=== PATIENT | female | born 1985 | race Caucasian/White ===

== ENCOUNTER 2017-10-11 20:11 | Inpatient (IN) | payer MEDICAID ==
[2017-10-11 22:09] LABS: ALB/GLOB RATIO 1.6 (1.0-2.1); ALBUMIN 4.4 g/dL (3.5-5.0); ALT/SGPT 25 U/L (9-52); AST/SGOT 17 U/L (14-36); BLOOD UREA NITROGEN 8 mg/dl (7-17); CALCIUM 9.2 mg/dL (8.4-10.2); GFR NON-AFRICAN AMERICAN > 60
[2017-10-11 22:13] LABS: SQUAMOUS EPITHIAL 1 /hpf (0-5); URINE BACTERIA RARE (<OCC); URINE BILIRUBIN NEGATIVE (NEGATIVE); URINE BLOOD NEGATIVE (NEGATIVE); URINE CLARITY SLIGHTY-CLOUDY (Clear); URINE COLOR YELLOW (YELLOW); URINE GLUCOSE (UA) NEG (Normal); URINE LEUKOCYTE ESTERASE SMALL Leu/uL (Negative); URINE PROTEIN NEGATIVE (NEGATIVE); URINE UROBILINOGEN 0.2-1.0 mg/dL (0.2-1.0)
[2017-10-11 22:27] LABS: BARBITURATES, UR NEGATIVE (NEGATIVE); BENZODIAZEPINES, UR NEGATIVE (NEGATIVE); OPIATES, UR NEGATIVE (NEGATIVE); PHENCYCLIDINE, UR NEGATIVE (NEGATIVE)
--- NOTE | 2017-10-11 22:46 | ED PDOC ---
HPI: Psych/Substance Abuse Time Seen by Provider: 10/11/17 21:04 Chief Complaint (Nursing): Psychiatric Evaluation Chief Complaint (Provider): Referred by psychiatrist History Per: Patient History/Exam Limitations: no limitations Additional Complaint(s): 32yo female with history of bipolar disorder, states she has been manic for the past 2 months. She has been seeing Dr. Faulkner at [place] and was evaluated today and referred to the ER for further evaluation and psych admission as patient reported increased lability of emotions, self injurious thoughts and visual hallucinations. Patient states she is currently on lithium. She states she has been admitted 1 x before due to psych reasons and that was 10 years ago. No medical complaints. Past Medical History Reviewed: Historical Data, Nursing Documentation, Vital Signs Vital Signs: Last Vital Signs Temp 98.4 F 10/11/17 20:57 Pulse 85 10/11/17 20:57 Resp 18 10/11/17 20:57 BP 149/86 10/11/17 20:57 Pulse Ox 100 10/11/17 20:57 - Medical History PMH: Bipolar Disorder - Surgical History Surgical History: No Surg Hx - Family History Family History: States: No Known Family Hx - Social History Current smoker - smoking cessation education provided: No Alcohol: None Drugs: Denies - Home Medications Home Medications: Ambulatory Orders Medication Instructions Recorded Gabapentin [Neurontin] 400 mg PO BID 10/11/17 [place] Carbonate [[place] 600 mg PO DAILY 10/11/17 Carbonate 300MG] QUEtiapine [Seroquel] 50 mg PO DAILY 10/11/17 - Allergies Allergies/Adverse Reactions: Allergies Allergy/AdvReac Type Severity Reaction Status Date / Time No Known Allergies Allergy Verified 10/11/17 20:56 Review of Systems ROS Statement: Except As Marked, All Systems Reviewed And Found Negative Constitutional: Negative for: Fever, Chills Cardiovascular: Negative for: Chest Pain Respiratory: Negative for: Shortness of Breath Gastrointestinal: Negative for: Abdominal Pain Psych: Positive for: Other (self injurious thoughts; hallucinations) Physical Exam - Reviewed Nursing Documentation Reviewed: Yes Vital Signs Reviewed: Yes - Physical Exam Appears: Positive for: Non-toxic, No Acute Distress Head Exam: Positive for: ATRAUMATIC, NORMAL INSPECTION, NORMOCEPHALIC Skin: Positive for: Normal Color, Warm, DRY Eye Exam: Positive for: EOMI, Normal appearance, PERRL ENT: Positive for: Normal ENT Inspection Neck: Positive for: Normal, Painless ROM Cardiovascular/Chest: Positive for: Regular Rate, Rhythm Respiratory: Positive for: CNT, Normal Breath Sounds Gastrointestinal/Abdominal: Positive for: Normal Exam, Soft Back: Positive for: Normal Inspection Extremity: Positive for: Normal ROM. Negative for: Pedal Edema Neurologic/Psych: Positive for: Alert, Oriented. Negative for: Motor/Sensory Deficits - Laboratory Results Result Diagrams: 10/11/17 21:53 - ECG O2 Sat by Pulse Oximetry: 100 (RA) Pulse Ox Interpretation: Normal Medical Decision Making Medical Decision Making: Impression: 32yo female with bipolar disorder Plan: -- Labs -- EKG -- Urinalysis -- Chest x-ray -- Ativan 1mg PO -- 1:1 observation Time: [address] Snider for bipolar disoder Time: 2229 Patient medically stable for psychiatric admission. Scribe Attestation: Documented by Litzy Sena, acting as a scribe for Joseph Bowman MD Provider Scribe Attestation: All medical record entries made by the Scribe were at my direction and personally dictated by me. I have reviewed the chart and agree that the record accurately reflects my personal performance of the history, physical exam, medical decision making, and the department course for this patient. I have also personally directed, reviewed, and agree with the discharge instructions and disposition. Disposition - Clinical Impression Clinical Impression: Bipolar disorder - Disposition Disposition Time: 22:00 Condition: STABLE
[2017-10-11] MEDS ORDERED: Alum-Mag Hydrox-Simethicone Susp (30 mL) PO PRN (23:48)
[2017-10-11] MEDS ORDERED: DiphenhydrAMINE 50 mg/ml Inj IM PRN (23:48)
[2017-10-11] MEDS ORDERED: Magnesium Hydroxide Susp 30 ml UD PO PRN (23:48)
[2017-10-12 00:11] VITALS: O2SAT 100
--- NOTE | 2017-10-12 01:49 | PCM.BM ---
<Bairon Mcrae P - Last Filed: 10/12/17 01:47> Treatment Plan Problems - Problems identified on initial assessmt Ineffective Impulse Control Date Initiated: 10/12/17 Time Initiated: 01:47 Assessment reference: NA Status: Active Altered Sleep Patterns Date Initiated: 10/12/17 Time Initiated: 01:48 Assessment reference: NA Status: Active Medication nonadherence Date Initiated: 10/12/17 Time Initiated: 01:48 Assessment reference: NA Status: Active Treatment assets and liabiliti Patient Assests: cooperative, ADL independent, physically healthy, negotiates basic needs, cognitively intact Patient Liabilities: financial problems, relationship conflicts, substance abuse - Milieu Protocol Maintain good personal hygiene: daily Encourage regular showers, daily Remind patient to perform daily oral care, daily Assist patient to perform ADL's Conduct patient checks and document Observation sheet: Q15 minutes Maintain personal safety: every shift Educate patient to report safety concerns to staff, every shift Monitor environment for contraband/sharps Medication safety: Monitor for expected outcome, potential side effects: every shift, Assess barriers to learning: every shift, Assess readiness for medication education: every shift <Kashmir Polanco J - Last Filed: 10/13/17 16:08> Family Contact Family involvement: Famliy/SO not involved Family contact: Patient declines to allow family contact at present Family contact name: Pt denied. - Goals for Treatment Patient goals for treatment: Pt reported she is already feeling better and did not have any goals, except to stop smoking marijuana and stay compliant with medication. Discharge/Continuing Care - Education Needs Education Needs: Patient Medication, Patient Diagnosis/Disease Process, Patient Coping Skills, Patient Placement options, Patient Community resources, Patient Aftercare Safety Plan - Discharge Discharge Criteria: Tolerates medication w/o severe side effects, Free of Suicidal thoughts, Free of agitation, Normal sleep pattern, Ability to care for self, Reduction of target symptoms Discharge to:: Home - Treatment Team Participation Patient/Family/SO Statement: 10/13/17 16:12 Pt was seen in treatment team today and reported she "feels well." Pt reported she had a "little episode" and "I was upset, I was upset." Pt reported she learned that she needs to "take it easy, and slow down." Pt listed therapy as one of her biggest needs. Dr. Castro discussed medication changes of Depakote and Minipress. Discussed with Family/SO: No Was Patient/Family/SO present at Treatment Team Meeting: Yes <Sylwia Castro - Last Filed: 10/15/17 09:31> - Diagnosis (1) Bipolar disorder Status: Acute Interventions: pharmacotherapy, psychotherapy 10/15/17 09:31
[2017-10-12 07:32] LABS: T4 6.94 ug/dl (5.5-11.0)
--- NOTE | 2017-10-12 08:45 | CARD ---
APPROVED REPORT Date of service: 10/11/2017 <Conclusion> Normal sinus rhythm Normal ECG
--- NOTE | 2017-10-12 08:51 | RAD ---
Date of service: 10/11/2017 HISTORY: admit COMPARISON: No prior. FINDINGS: LUNGS: The lungs are well inflated and clear. PLEURA: No significant pleural effusion identified, no pneumothorax apparent. CARDIOVASCULAR: Normal. OSSEOUS STRUCTURES: No significant abnormalities. VISUALIZED UPPER ABDOMEN: Normal. OTHER FINDINGS: None. IMPRESSION: No active pulmonary disease.
--- NOTE | 2017-10-12 13:14 | CP.PCM.CON ---
<HoskinsLoulou celestin - Last Filed: 10/12/17 17:30> History of Present Illness - History of Present Illness History of Present Illness: Medicine Consult Note 32 year old female with PMH of bipolar disorder presented to ED due to manic episode feeling suicidal. She denies any medical conditions. Otherwise feeling well. No headaches, dizziness, chest pain, palpitations dyspnea, abdominal pain, or constipation. No urinary symptoms. She endorses when she was taking lithium and seroquel she had vomiting and diarrhea. Those symptoms have resolved. LMP 08/30/17. reports her menses has been irregular for past few months. PMH: bipolar disorder Medications: Gabapentin, lithium, seroquel. Allergies: NKDA Social: +tobacco use, +cannabis use, no etoh Surgical hx : tubal ligation 2016 Review of Systems - Constitutional Constitutional: absent: Chills, Fever - EENT Eyes: absent: Change in Vision Nose/Mouth/Throat: absent: Nasal Congestion, Mouth Pain - Cardiovascular Cardiovascular: absent: Chest Pain, Diaphoresis, Dyspnea, Pedal Edema - Respiratory Respiratory: absent: Cough - Gastrointestinal Gastrointestinal: absent: Abdominal Pain - Neurological Neurological: absent: Dizziness, Numbness Past Patient History - Past Social History Alcohol: None Drugs: Denies - CARDIAC Hx Cardiac Disorders: No - PULMONARY Hx Respiratory Disorders: No Hx Tuberculosis: No - NEUROLOGICAL Hx Neurological Disorder: No HX Cerebrovascular Accident: No Hx Seizures: No - HEENT Hx HEENT Problems: No - RENAL Hx Chronic Kidney Disease: No - ENDOCRINE/METABOLIC Hx Endocrine Disorders: No - HEMATOLOGICAL/ONCOLOGICAL Hx Blood Disorders: No Hx Cancer: No Hx Human Immunodeficiency Virus (HIV): No - INTEGUMENTARY Hx Dermatological Problems: No - MUSCULOSKELETAL/RHEUMATOLOGICAL Hx Musculoskeletal Disorders: No - GASTROINTESTINAL Hx Gastrointestinal Disorders: No - GENITOURINARY/GYNECOLOGICAL Hx Genitourinary Disorders: No Hx Sexually Transmitted Disorders: No - PSYCHIATRIC Hx Bipolar Disorder: Yes - SURGICAL HISTORY Hx Surgeries: Yes Hx Section: Yes (x 2) - ANESTHESIA Hx Anesthesia: Yes Hx Anesthesia Reactions: No Meds Allergies/Adverse Reactions: Allergies Allergy/AdvReac Type Severity Reaction Status Date / Time No Known Allergies Allergy Verified 10/11/17 20:56 - Medications Medications: Current Medications Acetaminophen (Tylenol 325mg Tab) 650 mg PO Q4 PRN PRN Reason: pain level 4-7 Al Hydrox/Mg Hydrox/Simethicone (Maalox Plus 30 Ml) 30 ml PO Q4 PRN PRN Reason: Dyspepsia Diphenhydramine HCl (Benadryl) 50 mg IM Q6 PRN PRN Reason: Extrapyramidal S/S Unable PO Diphenhydramine HCl (Benadryl) 50 mg PO Q6 PRN PRN Reason: Extrapyramidal Symptoms Diphenhydramine HCl (Benadryl) 50 mg PO HS PRN PRN Reason: Sleep Gabapentin (Neurontin) 400 mg PO BID JUDD Last Admin: 10/12/17 10:21 Dose: 400 mg Haloperidol (Haldol) 5 mg PO Q4 PRN PRN Reason: Agitation Last Admin: 10/12/17 10:21 Dose: 5 mg Haloperidol Lactate (Haldol) 5 mg IM Q4 PRN PRN Reason: Agitation, Unable to Take PO Lorazepam (Ativan) 1 mg IM Q6 PRN PRN Reason: Anxiety/Agitation,Unable PO Lorazepam (Ativan) 1 mg PO Q6 PRN PRN Reason: Anxiety/Agitation Magnesium Hydroxide (Milk Of Magnesia) 30 ml PO HS PRN PRN Reason: Constipation Physical Exam - Constitutional Appears: No Acute Distress (cooperative) - Head Exam Head Exam: ATRAUMATIC, NORMAL INSPECTION, NORMOCEPHALIC - Eye Exam Eye Exam: Normal appearance - ENT Exam ENT Exam: Mucous Membranes Moist - Respiratory Exam Respiratory Exam: Clear to Auscultation Bilateral, NORMAL BREATHING PATTERN. absent: Decreased Breath Sounds, Respiratory Distress - Cardiovascular Exam Cardiovascular Exam: REGULAR RHYTHM, +S1, +S2 - GI/Abdominal Exam GI & Abdominal Exam: Normal Bowel Sounds, Soft. absent: Distended, Guarding, Tenderness - Extremities Exam Extremities exam: Positive for: normal inspection. Negative for: pedal edema - Skin Skin Exam: Dry, Intact, Normal Color, Warm Results - Vital Signs Recent Vital Signs: Last Vital Signs Temp 97.9 F 10/12/17 09:10 Pulse 80 10/12/17 09:10 Resp 18 10/12/17 09:10 BP 125/77 10/12/17 09:10 Pulse Ox 100 10/12/17 00:11 - Labs Result Diagrams: 10/11/17 21:53 Labs: Laboratory Results - last 24 hr 10/11/17 10/11/17 10/11/17 21:53 21:53 21:59 Sodium 140 Potassium 3.6 Chloride 109 H Carbon Dioxide 21 L Anion Gap 14 BUN 8 Creatinine 0.7 Est GFR ( Amer) > 60 Est GFR (Non-Af Amer) > 60 Random Glucose 85 Hemoglobin A1c Calcium 9.2 Total Bilirubin 0.5 AST 17 ALT 25 Alkaline Phosphatase 41 Total Protein 7.2 Albumin 4.4 Globulin 2.8 Albumin/Globulin Ratio 1.6 Triglycerides Cholesterol LDL Cholesterol Direct HDL Cholesterol Thyroxine (T4) TSH 3rd Generation Urine Color Yellow Urine Clarity Slighty-cloudy Urine pH 6.0 Ur Specific [place] 1.015 Urine Protein Negative Urine Glucose (UA) Neg Urine Ketones Trace Urine Blood Negative Urine Nitrate Negative Urine Bilirubin Negative Urine Urobilinogen 0.2-1.0 Ur Leukocyte Esterase Small Urine RBC (Auto) 2 Urine Microscopic WBC 24 H Ur Squamous Epith Cells 1 Urine Bacteria Rare Urine Opiates Screen Urine Methadone Screen Ur Barbiturates Screen Ur Phencyclidine Scrn Ur Amphetamines Screen U Benzodiazepines Scrn [place] 0.5 L U Oth Cocaine Metabols U Cannabinoids Screen Alcohol, Quantitative < 10 10/11/17 10/12/17 10/12/17 21:59 06:38 06:38 Sodium Potassium Chloride Carbon Dioxide Anion Gap BUN Creatinine Est GFR ( Amer) Est GFR (Non-Af Amer) Random Glucose Hemoglobin A1c 5.0 Calcium Total Bilirubin AST ALT Alkaline Phosphatase Total Protein Albumin Globulin Albumin/Globulin Ratio Triglycerides 69 Cholesterol 120 LDL Cholesterol Direct 59 HDL Cholesterol 38 Thyroxine (T4) 6.94 TSH 3rd Generation 1.71 Urine Color Urine Clarity Urine pH Ur Specific [place] Urine Protein Urine Glucose (UA) Urine Ketones Urine Blood Urine Nitrate Urine Bilirubin Urine Urobilinogen Ur Leukocyte Esterase Urine RBC (Auto) Urine Microscopic WBC Ur Squamous Epith Cells Urine Bacteria Urine Opiates Screen Negative Urine Methadone Screen Negative Ur Barbiturates Screen Negative Ur Phencyclidine Scrn Negative Ur Amphetamines Screen Negative U Benzodiazepines Scrn Negative [place] U Oth Cocaine Metabols Negative U Cannabinoids Screen Positive H Alcohol, Quantitative Assessment & Plan - Assessment and Plan (Free Text) Assessment: 32 year old female with bipolar disorder admitted for suicidal ideation. Thyroid /lipids/ hga1c reviewed an unremarkable. #Bipolar disorder #cannabis use -mgmt as per psych -lithium/seroquel held <Leonela Carmona - Last Filed: 10/12/17 17:44> Meds - Medications Medications: Current Medications Acetaminophen (Tylenol 325mg Tab) 650 mg PO Q4 PRN PRN Reason: pain level 4-7 Al Hydrox/Mg Hydrox/Simethicone (Maalox Plus 30 Ml) 30 ml PO Q4 PRN PRN Reason: Dyspepsia Diphenhydramine HCl (Benadryl) 50 mg IM Q6 PRN PRN Reason: Extrapyramidal S/S Unable PO Diphenhydramine HCl (Benadryl) 50 mg PO Q6 PRN PRN Reason: Extrapyramidal Symptoms Diphenhydramine HCl (Benadryl) 50 mg PO HS PRN PRN Reason: Sleep Divalproex Sodium (Depakote Dr(*Bid*)) 500 mg PO DAILY [facility] Last Admin: 10/12/17 13:53 Dose: 500 mg Divalproex Sodium (Depakote Dr(*Bid*)) 500 mg PO HS [facility] Gabapentin (Neurontin) 100 mg PO TID [facility] Last Admin: 10/12/17 17:36 Dose: 100 mg Haloperidol (Haldol) 5 mg PO Q4 PRN PRN Reason: Agitation Last Admin: 10/12/17 10:21 Dose: 5 mg Haloperidol Lactate (Haldol) 5 mg IM Q4 PRN PRN Reason: Agitation, Unable to Take PO Hydroxyzine Pamoate (Vistaril) 50 mg PO Q8 PRN PRN Reason: Anxiety Lorazepam (Ativan) 1 mg IM Q6 PRN PRN Reason: Anxiety/Agitation,Unable PO Magnesium Hydroxide (Milk Of Magnesia) 30 ml PO HS PRN PRN Reason: Constipation Quetiapine Fumarate (Seroquel) 300 mg PO HS [facility] Results - Vital Signs Recent Vital Signs: Last Vital Signs Temp 97.7 F 10/12/17 17:00 Pulse 91 H 10/12/17 17:00 Resp 18 10/12/17 17:00 BP 129/89 10/12/17 17:00 Pulse Ox 100 10/12/17 00:11 - Labs Result Diagrams: 10/11/17 21:53 Labs: Laboratory Results - last 24 hr 10/11/17 10/11/17 10/11/17 21:53 21:53 21:59 Sodium 140 Potassium 3.6 Chloride 109 H Carbon Dioxide 21 L Anion Gap 14 BUN 8 Creatinine 0.7 Est GFR ( Amer) > 60 Est GFR (Non-Af Amer) > 60 Random Glucose 85 Hemoglobin A1c Calcium 9.2 Total Bilirubin 0.5 AST 17 ALT 25 Alkaline Phosphatase 41 Total Protein 7.2 Albumin 4.4 Globulin 2.8 Albumin/Globulin Ratio 1.6 Triglycerides Cholesterol LDL Cholesterol Direct HDL Cholesterol Thyroxine (T4) TSH 3rd Generation Urine Color Yellow Urine Clarity Slighty-cloudy Urine pH 6.0 Ur Specific [place] 1.015 Urine Protein Negative Urine Glucose (UA) Neg Urine Ketones Trace Urine Blood Negative Urine Nitrate Negative Urine Bilirubin Negative Urine Urobilinogen 0.2-1.0 Ur Leukocyte Esterase Small Urine RBC (Auto) 2 Urine Microscopic WBC 24 H Ur Squamous Epith Cells 1 Urine Bacteria Rare Urine Opiates Screen Urine Methadone Screen Ur Barbiturates Screen Ur Phencyclidine Scrn Ur Amphetamines Screen U Benzodiazepines Scrn [place] 0.5 L U Oth Cocaine Metabols U Cannabinoids Screen Alcohol, Quantitative < 10 RPR 10/11/17 10/12/17 10/12/17 21:59 06:38 06:38 Sodium Potassium Chloride Carbon Dioxide Anion Gap BUN Creatinine Est GFR ( Amer) Est GFR (Non-Af Amer) Random Glucose Hemoglobin A1c 5.0 Calcium Total Bilirubin AST ALT Alkaline Phosphatase Total Protein Albumin Globulin Albumin/Globulin Ratio Triglycerides 69 Cholesterol 120 LDL Cholesterol Direct 59 HDL Cholesterol 38 Thyroxine (T4) 6.94 TSH 3rd Generation 1.71 Urine Color Urine Clarity Urine pH Ur Specific [place] Urine Protein Urine Glucose (UA) Urine Ketones Urine Blood Urine Nitrate Urine Bilirubin Urine Urobilinogen Ur Leukocyte Esterase Urine RBC (Auto) Urine Microscopic WBC Ur Squamous Epith Cells Urine Bacteria Urine Opiates Screen Negative Urine Methadone Screen Negative Ur Barbiturates Screen Negative Ur Phencyclidine Scrn Negative Ur Amphetamines Screen Negative U Benzodiazepines Scrn Negative [place] U Oth Cocaine Metabols Negative U Cannabinoids Screen Positive H Alcohol, Quantitative RPR 10/12/17 06:38 Sodium Potassium Chloride Carbon Dioxide Anion Gap BUN Creatinine Est GFR ( Amer) Est GFR (Non-Af Amer) Random Glucose Hemoglobin A1c Calcium Total Bilirubin AST ALT Alkaline Phosphatase Total Protein Albumin Globulin Albumin/Globulin Ratio Triglycerides Cholesterol LDL Cholesterol Direct HDL Cholesterol Thyroxine (T4) TSH 3rd Generation Urine Color Urine Clarity Urine pH Ur Specific [place] Urine Protein Urine Glucose (UA) Urine Ketones Urine Blood Urine Nitrate Urine Bilirubin Urine Urobilinogen Ur Leukocyte Esterase Urine RBC (Auto) Urine Microscopic WBC Ur Squamous Epith Cells Urine Bacteria Urine Opiates Screen Urine Methadone Screen Ur Barbiturates Screen Ur Phencyclidine Scrn Ur Amphetamines Screen U Benzodiazepines Scrn [place] U Oth Cocaine Metabols U Cannabinoids Screen Alcohol, Quantitative RPR Nonreactive Attending/Attestation - Attestation I have personally seen and examined this patient.: Yes I have fully participated in the care of the patient.: Yes I have reviewed all pertinent clinical information: Yes Notes (Text): 10/12/17 17:44 Seen, examined, and discussed with residents Dr. Hoskins. Agree with findings and plan as above.
[2017-10-12] MEDS: Divalproex 500 mg DR(BID formulation) PO SCH (13:53)
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
[2017-10-12] MEDS ORDERED: Divalproex 500 mg DR(BID formulation) PO SCH (22:00)
[2017-10-13] MEDS: Divalproex 500 mg DR(BID formulation) PO SCH ×2 (08:39→21:10)
--- NOTE | 2017-10-13 15:38 | PCM.PYCHPN ---
Psychiatric Progress Note - Psychiatric Progress Note Patient seen today, length of contact: pt evaluated discussed with team chart reviewed Patient Chief Complaint: I feel better being on medications Problems Identified/Issues Discussed: pt evaluated with treatment team, reported feeling less edgy and less irritable being placed on the medications speech less pressured but over productive discussed with pt the need to continue with one mood stabilizer at optimum dose , pt agreed to continue with depakote motivational therapy provided in reference to cannabis use pt denied any current thought of self harm, denied homicidal ideation Medical Problems: one hospitalization at [facility] 10ys ago DSM 5 Symptoms Update: [id number] cannabis abuse Medication Change: Yes (increase depakote ) Medical Record Reviewed: Yes Mental Status Examination - Cognitive Function Orientation: Person, Place Attention: WNL Concentration: WNL Association: WNL Fund of Knowledge: Poor Decription of patient's judgement and insights: partial insight , poor judgment - Mood Mood: Anxious - Affect Affect: Constricted - Speech Speech: Pressured - Formal Thought Process Formal Thought Process: Circumstantial Psychotic Thoughts and Behaviors: pt denied perceptual disturbances - Suicidal Ideation Suicidal Ideation: No - Homicidal Ideation Homicidal Ideation: No Goal/Treatment Plan - Goal/Treatment Plan Need for Continued Stay: Remain at risks for inpatient hospitalization, Discharge may exacerbated symptoms Progress Toward Problem(s) and Goals/Treatment Plan: increase depakote 500mg daily and 1000mg qhs, follow up ondepakote level discontinue seroquel and neurontin cbt group and supportive therapy
[2017-10-14] MEDS: Divalproex 500 mg DR(BID formulation) PO SCH ×2 (09:47→21:05)
--- NOTE | 2017-10-14 14:08 | PCM.PYCHPN ---
Psychiatric Progress Note - Psychiatric Progress Note Patient seen today, length of contact: pt evaluated discussed with team chart reviewed Patient Chief Complaint: I am feeling calmer with the depakote Problems Identified/Issues Discussed: pt evaluated , reported better mood, affect camer and less irritable, speech less pressured and thought process more organized no reported side effects of medications, participating in groups pt denied any current thought of self harm, denied homicidal ideation Medical Problems: one hospitalization at [facility] 10ys ago DSM 5 Symptoms Update: bipoar I disorder Medication Change: No (increase depakote ) Medical Record Reviewed: Yes Mental Status Examination - Cognitive Function Orientation: Person, Place Attention: WNL Concentration: WNL Association: WNL Fund of Knowledge: Poor Decription of patient's judgement and insights: partial insight , poor judgment - Mood Mood: Anxious - Affect Affect: Constricted - Speech Speech: Pressured - Formal Thought Process Formal Thought Process: Circumstantial Psychotic Thoughts and Behaviors: pt denied perceptual disturbances - Suicidal Ideation Suicidal Ideation: No - Homicidal Ideation Homicidal Ideation: No Goal/Treatment Plan - Goal/Treatment Plan Need for Continued Stay: Remain at risks for inpatient hospitalization, Discharge may exacerbated symptoms Progress Toward Problem(s) and Goals/Treatment Plan: continue depakote 500mg daily and 1000mg qhs, follow up on depakote level vistaril prn for anxiety cbt group and supportive therapy
[2017-10-15] MEDS: Divalproex 500 mg DR(BID formulation) PO SCH (09:03)
[2017-10-15 09:23] VITALS: BP 106/78; PULSE 72; RESP 15; TEMP 97.5
--- NOTE | 2017-10-15 11:59 | PCM.PYCHDC ---
Mental Status Examination - Mental Status Examination Orientation: Person, Place, Situation Memory: Intact Mood: Anxious, Neutral Speech: Appropriate Attention: WNL Concentration: WNL Association: WNL Fund of Knowledge: WNL Formal Thought Process: No Impairment Description of patient's judgement and insight: partial insight , poor judgment Psychotic Thoughts and Behaviors: pt denied perceptual disturbances , non elicited Suicidal Ideation: No Current Homicidal Ideation?: No Discharge Summary - Discharge Note Reason for Hospitalization: pt is a 32ys old female with previous diagnosis of bipolar disorder since age 21 with one psychiatric hospitalization, currently under care of psychiatrist, medications seroquel 200mg and lithium 300mg , pt reportedly for the past 8months has not been stable, experiencuing racing thoughts, high energy, poor sleep, about 2 hours daily, pt also has been sexually preoccupied, edgy , irritable, with homicidal thoughts on day of evaluation pt started having suicidal thoughts with plan to overdose on her medications, came to ER seeking help pt on evaluation presenting with pressured speech, tangential thought process, edginess irritability and labile affect collateral information spoke to pt's father, whom reported pt is suffering from depression and she is very stressed out as she from her recently.Pt's father stated that pt has 3 children and he helps her take care of them.Pt's father stated that pt is not presently working and he supports her also financiancially. Pt's father stated that he believes pt would benefit from receiving therapeutic services. Consultations:: List each consultation separately and include: 1. Reason for request. 2. Findings. 3. Follow-up Summary of Hospital Course include:: 1. Description of specific treatment plan utilized for patients during their course of treatmen. 2. Summarize the time- course for resolution of acute symptoms and/or regressed behaviors. 3. Describe issues identified and worked on during hospitalization. 4. Describe medication utilized. 5. Describe medical problems identified and treated. 6. Reassessment of suicide risk Summary of Hospital Course: pt ion admission presented with pressured speech, labile mood and affect, edginess and irritability pt reported she has not been compliant with medications for at least a month psychoeducation provided discussed pt importance of medication compliance motivational therapy provided in refernce to cannabis use pt was started on depakote and it was up titrated to 1500 mg daily, no reported side effects pt was compliant with treatment , attended groups , on discharge mental status was stable, pt denied any suicidal or homicidal ideations follow up arranged by social worker psychiatric at [facility] outpatient services - Diagnosis (1) Bipolar disorder Current Visit: Yes Status: Acute - Final Diagnosis (DSM 5) Condition upon Discharge: STABLE DSM 5: bipolar I disorder MRE mixed severe without psychotic features cannabis abuse Disposition: HOME/ ROUTINE Follow-up Treatment Plan: continue depakote 500mg daily and 1000mg qhs, follow up on depakote level vistaril prn for anxiety cbt group and supportive therapy Prescriptions/Medication Reconciliation: hydrOXYzine Pamoate [Vistaril] 50 mg PO Q8 PRN 30 Days #90 cap PRN Reason: Anxiety - Smoking Cessation Smoking Cessation Medication prescribed: No - Antipsychotic Medications Pt discharged on 2 or more routine antipsychotic medications: No
[2017-10-15] MEDS ORDERED: Divalproex 500 mg DR(BID formulation) PO SCH (22:00)
[2017-10-16] MEDS ORDERED: Divalproex 500 mg DR(BID formulation) PO SCH (09:00)
== END 2017-10-15 10:00 | disposition home or self-care (01) | DRG 430 ==
LOC: H.ER 20:11 → H.ERHOLD 22:24 → H.PSYCH 23:45
PROVIDERS: ADMIT Psychiatry & Neurology Psychiatry; ATTEND Psychiatry & Neurology Psychiatry
PROC: GZHZZZZ Group Psychotherapy (ICD-10-PCS; principal; 2017-10-12)
PROC: GZ51ZZZ Individual Psychotherapy, Behavioral (ICD-10-PCS; 2017-10-12)
DX: F31.63 Bipolar disorder, current episode mixed, severe, without psychotic features (principal); F41.9 Anxiety disorder, unspecified; R45.851 Suicidal ideations; Z91.14 Patient's other noncompliance with medication regimen; Z79.899 Other long term (current) drug therapy; F12.10 Cannabis abuse, uncomplicated

== ENCOUNTER 2017-10-22 09:11 | Emergency (ER) | payer MEDICAID ==
[2017-10-22 09:23] VITALS: O2SAT 100
[2017-10-22] MEDS ORDERED: Sodium Chloride 0.9% 1,000 ML IV STA (09:53)
[2017-10-22] MEDS ORDERED: Tmp-Smz 800 mg-160 mg DS Tab PO STA (09:54)
[2017-10-22] MEDS ORDERED: Tmp-Smz 800 mg-160 mg DS Tab ONE (10:00)
--- NOTE | 2017-10-22 10:00 | ED PDOC ---
HPI: Abdomen Time Seen by Provider: 10/22/17 09:24 Chief Complaint (Nursing): Abdominal Pain Chief Complaint (Provider): Abdominal Pain History Per: Patient History/Exam Limitations: no limitations Onset/Duration Of Symptoms: Days (x 1 week) Current Symptoms Are (Timing): Still Present Location Of Pain/Discomfort: LLQ Associated Symptoms: Nausea, Vomiting, Diarrhea. denies: Fever, Chills Additional Complaint(s): Gudelia Albarran, a 32 year old female with past medical history of bipolar disorder, presents to the emergency room with LLQ abdominal pain onset 1 week ago. Patient states she had been ignoring the pain but it got worse the past 4 days. She reports that she has been taking Ibuprofen for the pain, and took 3 tabs last night. Patient states she has had a problem with urination and frequency and describes it has an odor and sometimes gallo. She reports going to the OBGYN 6 days ago with no abnormalities. Patient states that she could not sleep last night. She reports that when the pain first started, she experienced nausea, vomiting and diarrhea, but has not had symptoms since. Patient denies fever chills or headache. No further medical complaints. Last Menstral Period: September 01, 2017 : 3 Para: 4 Miscarriage: 1 Past Medical History Reviewed: Historical Data, Nursing Documentation, Vital Signs Vital Signs: Last Vital Signs Temp 98.6 F 10/22/17 09:22 Pulse 89 10/22/17 09:22 Resp 19 10/22/17 09:22 BP 113/74 10/22/17 09:22 Pulse Ox 100 10/22/17 12:37 - Medical History PMH: Bipolar Disorder Denies: Diabetes, Hepatitis, HIV, HTN, Chronic Kidney Disease, Seizures, Sexually Transmitted Disease - Surgical History Surgical History: (x2) - Family History Family History: States: Unknown Family Hx - Social History Drugs: Cannabis - Home Medications Home Medications: Ambulatory Orders Medication Instructions Recorded Gabapentin [Neurontin] 400 mg PO BID 10/11/17 [place] Carbonate [[place] 600 mg PO HS 10/11/17 Carbonate 300MG] QUEtiapine [Seroquel] 50 mg PO DAILY 10/11/17 hydrOXYzine Pamoate [Vistaril] 50 mg PO Q8 PRN 30 Days #90 cap 10/15/17 Naproxen [Naprosyn] 500 mg PO BID PRN #20 tablet 10/22/17 Sulfamethoxazole/Trimethoprim 1 tab PO BID #14 tab 10/22/17 [Bactrim DS 800 mg-160 mg] - Allergies Allergies/Adverse Reactions: Allergies Allergy/AdvReac Type Severity Reaction Status Date / Time No Known Allergies Allergy Verified 10/11/17 20:56 Review of Systems ROS Statement: Except As Marked, All Systems Reviewed And Found Negative Constitutional: Negative for: Fever, Chills Gastrointestinal: Positive for: Nausea (start of pain), Vomiting (start of pain) , Abdominal Pain (LLQ) Genitourinary Female: Positive for: Frequency, Other (burining while urinating) Neurological: Negative for: Headache Physical Exam - Reviewed Nursing Documentation Reviewed: Yes Vital Signs Reviewed: Yes - Physical Exam Appears: Positive for: Well, Non-toxic, Uncomfortable (mildly) Head Exam: Positive for: ATRAUMATIC, NORMAL INSPECTION, NORMOCEPHALIC Cardiovascular/Chest: Positive for: Regular Rate, Rhythm Respiratory: Positive for: Normal Breath Sounds. Negative for: Respiratory Distress Gastrointestinal/Abdominal: Positive for: Bowel Sounds, Tenderness (LLQ, mild on right side), Rebound Back: Positive for: Normal Inspection. Negative for: L CVA Tenderness, R CVA Tenderness Neurologic/Psych: Positive for: Alert, Oriented - Laboratory Results Result Diagrams: 10/22/17 10:12 10/22/17 10:12 - ECG O2 Sat by Pulse Oximetry: 100 (RA) Pulse Ox Interpretation: Normal Medical Decision Making Medical Decision Making: Time: 9:24 Initial Impression: bladder or kidney infection Initial Plan: --CMP --Lipase stat --ED urine --ED urine dipstick --CBC w/ differential --Toradol 30 mg IVP --Pelvis ultrasound --Urinalysis --Bactrim DS 1 tab PO --Sodium chloride 1000 ml --Urine culture -differential diagnosis: UTI, ovarian cyst, pyelonephritis, kidney stones Time: 21:31 Abd/Pelvis US FINDINGS: UTERUS: Measures 10.2 x 4.4 x 5.7 cm. Anteverted. Normal in size and appearance. No fibroid or other mass lesion seen. ENDOMETRIUM: Measures 4.5 mm in diameter. Unremarkable. CERVIX: No cervical abnormality identified. RIGHT OVARY: Not visualized LEFT OVARY: Measures 3.7 x 2.5 x 4.0 cm. No solid mass. Normal flow. Multiple small follicular cysts are present. FREE FLUID: There is small amount of free fluid seen in the cul de sac. OTHER FINDINGS: None. IMPRESSION: Small amount of free fluid seen in the cul de sac. Nonvisualization right ovary. Scribe Attestation: Documented by Agata Houser, acting as a scribe for Janie Allen MD. Provider Scribe Attestation: All medical record entries made by the Scribe were at my direction and personally dictated by me. I have reviewed the chart and agree that the record accurately reflects my personal performance of the history, physical exam, medical decision making, and the department course for this patient. I have also personally directed, reviewed, and agree with the discharge instructions and disposition. 1.00 - patient feeling better. Still has mild left pelvic pain. UA +WBC, correlating with h/o urinary frequency and burning. Disposition - Clinical Impression Clinical Impression: UTI (urinary tract infection), Pelvic pain - Patient ED Disposition Is Patient to be Admitted: No Doctor Will See Patient In The: Office Counseled Patient/Family Regarding: Diagnosis, Need For Followup, Rx Given - Disposition Disposition: Routine/Home Disposition Time: 13:00 Condition: STABLE Prescriptions: Naproxen [Naprosyn] 500 mg PO BID PRN #20 tablet PRN Reason: Pain, Moderate (4-7) Sulfamethoxazole/Trimethoprim [Bactrim DS 800 mg-160 mg] 1 tab PO BID #14 tab Instructions: Urinary Tract Infections in Adults, Acute Pelvic Pain Forms: [facility] [employer] [facility] ([place]) - POA Present On Arrival: None
[2017-10-22 10:41] LABS: SQUAMOUS EPITHIAL < 1 /hpf (0-5); URINE BILIRUBIN NEGATIVE (NEGATIVE); URINE BLOOD SMALL (NEGATIVE); URINE CLARITY CLOUDY (Clear); URINE COLOR YELLOW (YELLOW); URINE GLUCOSE (UA) NEG (Normal); URINE LEUKOCYTE ESTERASE LARGE Leu/uL (Negative); URINE PROTEIN NEGATIVE (NEGATIVE); URINE UROBILINOGEN 0.2-1.0 mg/dL (0.2-1.0)
[2017-10-22 10:45] LABS: BASO % 0.2 % (0.0-2.0); EOS % 0.3 % (0.0-4.0); HEMOGLOBIN 11.6 g/dL (12.0-16.0); LYMPH # 1.7 K/uL (1.0-4.3); LYMPH % 13.8 % (20.0-40.0); MEAN CELL VOLUME 90.7 fl (81.0-99.0); MEAN CORPUSCULAR HEMOGLOBIN 29.9 pg (27.0-31.0); MEAN CORPUSCULAR HGB CONC 32.9 g/dL (33.0-37.0); MEAN PLATELET VOLUME 10.2 fl (7.2-11.7); MONO # 0.6 K/uL (0.0-0.8); MONO % 4.8 % (0.0-10.0); NEUT # 10.2 K/uL (1.8-7.0); NEUT % 80.9 % (50.0-75.0); NRBC % 0.1 % (0.0-0.0); RBC 3.89 Mil/uL (3.80-5.20); RED CELL DISTRIBUTION WIDTH 16.5 % (11.5-14.5); WHITE BLOOD COUNT 12.6 K/uL (4.8-10.8)
[2017-10-22 11:05] LABS: ALB/GLOB RATIO 1.3 (1.0-2.1); ALBUMIN 3.9 g/dL (3.5-5.0); ALT/SGPT 13 U/L (9-52); AST/SGOT 15 U/L (14-36); BLOOD UREA NITROGEN 14 mg/dl (7-17); CALCIUM 8.9 mg/dL (8.4-10.2); GFR NON-AFRICAN AMERICAN > 60; LIPASE 48 U/L (23-300)
--- NOTE | 2017-10-22 12:33 | US ---
Date of service: 10/22/2017 HISTORY: LLQ pain and tenderness COMPARISON: None available. TECHNIQUE: Transabdominal sonographic evaluation of the pelvis performed. FINDINGS: UTERUS: Measures 10.2 x 4.4 x 5.7 cm. Anteverted. Normal in size and appearance. No fibroid or other mass lesion seen. ENDOMETRIUM: Measures 4.5 mm in diameter. Unremarkable. CERVIX: No cervical abnormality identified. RIGHT OVARY: Not visualized LEFT OVARY: Measures 3.7 x 2.5 x 4.0 cm. No solid mass. Normal flow. Multiple small follicular cysts are present. FREE FLUID: There is small amount of free fluid seen in the cul de sac. OTHER FINDINGS: None. IMPRESSION: Small amount of free fluid seen in the cul de sac. Nonvisualization right ovary.
[2017-10-22 13:55] VITALS: BP 101/57; PULSE 71; RESP 18; TEMP 97.5
== END 2017-10-22 14:00 | disposition home or self-care (01) ==
LOC: H.ER 09:11
DX: N39.0 Urinary tract infection, site not specified (principal); F31.9 Bipolar disorder, unspecified
CPT/HCPCS: 76856; 80053; 81003; 81025; 83690; 85025; 87086; 96374; 99284; J1885; J7030